=== PATIENT | male | born 1950 | race Caucasian/White ===

== ENCOUNTER 2016-10-19 11:57 | Emergency (ER) | payer OTHER, MEDICARE ==
[2016-10-19] MEDS ORDERED: IOHEXOL 240 MG/ML 50ML VIAL. ONE (12:36)
[2016-10-19 12:50] LABS: BASO # 0.1 x10^3/uL (0.0-0.2); BASO % 1 % (0-3); EOS # 0.2 x10^3/uL (0.0-0.7); EOS % 2 % (0-3); HEMOGLOBIN 14.3 g/dL (13.0-17.5); LYMPH % 28 % (24-48); MEAN CORPUSCULAR HEMOGLOBIN 33 pg (25-35); MEAN CORPUSCULAR HGB CONC 34 g/dL (31-37); MEAN CORPUSCULAR VOLUME 97 fL (79-100); MONO # 0.5 x10^3/uL (0.0-1.1); MONO % 8 % (0-9); NEUT # 4.3 x10^3uL (1.8-7.7); NEUT % 61 % (31-73); PLATELET COUNT 261 x10^3/uL (140-400); RED BLOOD COUNT 4.34 x10^6/uL (4.30-5.70); RED CELL DISTRIBUTION WIDTH 13.6 % (11.5-14.5)
[2016-10-19 13:05] LABS: ALBUMIN/GLOBULIN RATIO 1.2 (1.0-1.7); CALCIUM 9.2 mg/dL (8.5-10.1); CREATININE 1.3 mg/dL (0.7-1.3); GFR 55.2; POTASSIUM 3.8 mmol/L (3.5-5.1); TOTAL BILIRUBIN 0.5 mg/dL (0.2-1.0); TOTAL PROTEIN 7.3 g/dL (6.4-8.2)
[2016-10-19] MEDS ORDERED: IOHEXOL 300 MG/ML 75 ML VIAL. IV ONE (13:45)
--- NOTE | 2016-10-19 14:10 | RAD ---
Indication left lower quadrant and flank pain for a year worse onset yesterday. Axial images through the abdomen and pelvis were obtained. Both IV and oral contrast were administered. Approximately 60 cc of Omnipaque 300 was administered intravenously. No prior imaging is available. The lung bases are clear. The liver and spleen appear unremarkable and the gallbladder appears grossly normal. The pancreas appears normal. There is a small mass associated with the right adrenal gland measuring approximately 1 cm with fatty elements compatible with a benign adenoma. The left adrenal gland appears normal. There are occasional minute bilateral renal calculi right greater than left. No additional finding is seen associated with either kidney. There is no hydronephrosis hydroureter or calcification seen associated with either ureter. An acute finding is not seen in the abdomen. There is an oval calcification/ossification measuring approximately 3 cm in greatest dimension in the retroperitoneum just ventral to L2. The etiology is unclear but this is probably incidental. In the pelvis moderately extensive diverticulosis is seen associated with the sigmoid colon. Active inflammation is not seen. An acute finding in the pelvis is not apparent. There are some degenerative changes in the lumbar spine. IMPRESSION: No acute finding seen in the abdomen or pelvis. Moderately extensive diverticulosis associated with the sigmoid colon. 3 cm retroperitoneal calcification/ossification likely incidental. Small bilateral intrarenal calculi PQRS Compliance Statement: One or more of the following individualized dose reduction techniques were utilized for this examination: 1. Automated exposure control 2. Adjustment of the mA and/or kV according to patient size 3. Use of iterative reconstruction technique
[2016-10-19 14:29] LABS: BACTERIA,URINE 0 /HPF (0-FEW); BILIRUBIN,URINE NEG (NEG); CLARITY,URINE CLEAR; COLOR,URINE YELLOW; GLUCOSE,URINE NEG (NEG); NITRITE,URINE NEG (NEG); RBC,URINE 0 /HPF (0-2); SQUAMOUS EPITHELIAL CELL,UR OCC /LPF; UROBILINOGEN,URINE 0.2 mg/dL (0.2 mg/dL); WBC,URINE 0 /HPF (0-4)
[2016-10-19] MEDS ORDERED: PRED20TA PO (15:00)
--- NOTE | 2016-10-19 15:00 | PHYS DOC ---
Past History Past Medical History: A-Fib, Cancer, GERD, High Cholesterol, Hypothyroid Past Surgical History: Cancer Surgery, Other Alcohol Use: Occasionally Drug Use: None Adult General Chief Complaint Chief Complaint: ABDOMINAL PAIN HPI HPI Patient is a 66-year-old male who presents to the ED complaining of left lower quadrant abdominal pain. The patient is in town from [place] because their daughter just had a baby. Patient states he has had this left lower quadrant pain for really maybe up to a year. He has seen his doctor, he had a bone scan, had upper and lower endoscopy. He believes he had a scan of his pelvis. They have not been able to find out what was causing the pain. 12 weeks ago, he had a back surgery in [place], he states the pain down his leg has not improved and he doesn't believe the surgery worked. Yesterday, the patient and his drove from [place] to here and he states the pain was severe while they were driving. He had a hard time riding. He doesn't think it kept him up last night, but it continues to hurt today. He cannot really say if there are any exacerbating or alleviating factors. He thinks maybe his belt being too tight may make it worse. He has noted abdominal "bloating". No constipation or diarrhea, no nausea or vomiting. He has tried Aleve for the pain without much relief. Patient is status post prostate surgery for prostate cancer in the past. They also repaired and umbilical hernia at that time. He had a kidney stone once a long time ago. Otherwise he is in good health. Review of Systems Review of Systems Constitutional: Denies fever or chills [] HENT: Denies nasal congestion or sore throat [] Respiratory: Denies cough or shortness of breath [] Cardiovascular: Denies chest pain GI: Denies nausea, vomiting, bloody stools, constipation or diarrhea [] : Denies dysuria or hematuria [] Musculoskeletal: Denies back pain or joint pain [] Integument: Denies rash or skin lesions [] Neurologic: Denies headache, focal weakness or sensory changes [] Current Medications Current Medications Current Medications Medications (Trade) Dose Ordered Sig/Julia Start Time Stop Time Status Last Admin Dose Admin Iohexol (Omnipaque 240 Mg/ml) 50 ml STK-MED ONCE 10/19/16 12:36 10/19/16 12:37 DC Iohexol (Omnipaque 300 Mg/ml) 75 ml 1X ONCE 10/19/16 13:45 10/19/16 13:46 DC 10/19/16 13:42 75 ML Allergies Allergies Allergies Coded Allergies Type Severity Reaction Last Updated Verified No Known Drug Allergies 10/19/16 No Physical Exam Physical Exam Constitutional: Well developed, well nourished, no acute distress, non-toxic appearance. Alert, ambulatory, mentating normally, warm and dry, vital signs stable HENT: Normocephalic, atraumatic, bilateral external ears normal, nose normal. [] Eyes: conjunctiva normal, no discharge. [] Neck: Normal range of motion, no stridor. [] Cardiovascular:Heart rate regular rhythm, no murmur [] Lungs & Thorax: Bilateral breath sounds clear to auscultation [] Abdomen: Bowel sounds normal, soft, nondistended, no masses, no pulsatile masses. No skin lesions, no hernias. Palpation is essentially unremarkable. Palpation in the area of pain is not necessarily tender. No rebound or guarding. Skin: Warm, dry, no erythema, no rash. [] Back: No tenderness, no CVA tenderness. There is a small healed incision over the lower lumbar area which is healed well and appears healthy. Extremities: No tenderness, no cyanosis, no clubbing, ROM intact, no edema. [] Neurologic: Alert and oriented X 3, normal motor function, normal sensory function, no focal deficits noted. [] Current Patient Data Vital Signs Vital Signs Date Time Temp Pulse Resp B/P (MAP) Pulse Ox O2 Delivery O2 Flow Rate FiO2 10/19/16 12:00 98.3 62 16 97 Room Air Lab Results Laboratory Tests Test 10/19/16 12:38 10/19/16 14:00 White Blood Count 7.0 x10^3/uL (4.0-11.0) Red Blood Count 4.34 x10^6/uL (4.30-5.70) Hemoglobin 14.3 g/dL (13.0-17.5) Hematocrit 42.0 % (39.0-53.0) Mean Corpuscular Volume 97 fL (79-100) Mean Corpuscular Hemoglobin 33 pg (25-35) Mean Corpuscular Hemoglobin Concent 34 g/dL (31-37) Red Cell Distribution Width 13.6 % (11.5-14.5) Platelet Count 261 x10^3/uL (140-400) Neutrophils (%) (Auto) 61 % (31-73) Lymphocytes (%) (Auto) 28 % (24-48) Monocytes (%) (Auto) 8 % (0-9) Eosinophils (%) (Auto) 2 % (0-3) Basophils (%) (Auto) 1 % (0-3) Neutrophils # (Auto) 4.3 x10^3uL (1.8-7.7) Lymphocytes # (Auto) 2.0 x10^3/uL (1.0-4.8) Monocytes # (Auto) 0.5 x10^3/uL (0.0-1.1) Eosinophils # (Auto) 0.2 x10^3/uL (0.0-0.7) Basophils # (Auto) 0.1 x10^3/uL (0.0-0.2) Sodium Level 138 mmol/L (136-145) Potassium Level 3.8 mmol/L (3.5-5.1) Chloride Level 103 mmol/L (98-107) Carbon Dioxide Level 27 mmol/L (21-32) Anion Gap 8 (6-14) Blood Urea Nitrogen 17 mg/dL (8-26) Creatinine 1.3 mg/dL (0.7-1.3) Estimated GFR (Cockcroft-Gault) 55.2 BUN/Creatinine Ratio 13 (6-20) Glucose Level 98 mg/dL (70-99) Calcium Level 9.2 mg/dL (8.5-10.1) Total Bilirubin 0.5 mg/dL (0.2-1.0) Aspartate Amino Transferase (AST) 22 U/L (15-37) Alanine Aminotransferase (ALT) 35 U/L (16-63) Alkaline Phosphatase 64 U/L (46-116) Total Protein 7.3 g/dL (6.4-8.2) Albumin 4.0 g/dL (3.4-5.0) Albumin/Globulin Ratio 1.2 (1.0-1.7) Lipase 167 U/L (73-393) Urine Collection Type Unknown Urine Color Yellow Urine Clarity Clear Urine pH 6.0 Urine Specific [place] 1.015 Urine Protein Neg (NEG-TRACE) Urine Glucose (UA) Neg mg/dL (NEG) Urine Ketones (Stick) Neg mg/dL (NEG) Urine Blood Neg (NEG) Urine Nitrite Neg (NEG) Urine Bilirubin Neg (NEG) Urine Urobilinogen Dipstick 0.2 mg/dL (0.2 mg/dL) Urine Leukocyte Esterase Neg (NEG) Urine RBC 0 /HPF (0-2) Urine WBC 0 /HPF (0-4) Urine Squamous Epithelial Cells Occ /LPF Urine Bacteria 0 /HPF (0-FEW) EKG EKG [] Radiology/Procedures Radiology/Procedures CT scan of the abdomen and pelvis read by the radiologist. No acute findings. [] Course & Med Decision Making Course & Med Decision Making Pertinent Labs and Imaging studies reviewed. (See chart for details) 66-year-old male presents with left sided/left lower quadrant abdominal pain that may have been going on for is much as a year but has bothered him much more over the last 1-2 days. Abdomen exam is entirely benign. There are no concerning features to the abdominal pain, no specific features that would aid in the diagnosis. Labs, urine, CT scan are unrevealing as to the cause. I discussed with the patient and his that I wonder if this pain might be radicular in origin. He has an ongoing lumbar radiculopathy and it's likely that he has multilevel disease. We agreed to try a short course of prednisone. He is in town for just about a week and then will be returning to his own doctor. See instructions for plan. [] Dragon Disclaimer Dragon Disclaimer This chart was dictated in whole or in part using Voice Recognition software in a busy, high-work load, and often noisy Emergency Department environment. It may contain unintended and wholly unrecognized errors or omissions. Departure Departure: Impression: Primary Impression: Left sided abdominal pain of unknown cause Disposition: 01 HOME, SELF-CARE Condition: STABLE Referrals: PCP,UNKNOWN (PCP) Patient Instructions: Abdominal Pain, [id number] Additional Instructions: As we discussed, blood tests, urine test, and CT scan did not show a cause for your pain. With normal testing not showing a cause, I wonder if your abdominal pain could be from a pinched nerve in your lower thoracic spine, causing nerve pain of your abdominal wall. We will try 10 days of prednisone to see if that helps. I also recommend wearing pants without a belt for week or 2 to see if that helps. If your pain goes away and does not come back, you don't need to worry about it anymore. If your pain goes away but then comes back, or if it doesn't go away, see your doctor when you return home. You may take Aleve or ibuprofen along with the prednisone if you need to for pain. Scripts Prednisone (PREDNISONE) 20 Mg Tablet 10 MG PO DAILY for possible pinched nerve, #30 TAB 40 mg daily for 3 days then 30 mg daily for 3 days then 20 mg daily for 3 days then 10 mg daily for 3 days Prov: LARRY BACON MD 10/19/16 LARRY BACON MD Oct 19, 2016 15:00
[2016-10-19 15:07] VITALS: BP 148/92
== END 2016-10-19 15:11 | disposition home or self-care (01) ==
LOC: ER 11:57
DX: R10.32 Left lower quadrant pain (principal); M54.16 Radiculopathy, lumbar region; I48.91 Unspecified atrial fibrillation; K21.9 Gastro-esophageal reflux disease without esophagitis; E03.9 Hypothyroidism, unspecified; E78.00 Pure hypercholesterolemia, unspecified
CPT/HCPCS: 36415; 74177; 80053; 81001; 83690; 85025; 99285; Q9967